=== PATIENT | male | born 1930 | race Caucasian/White ===

== ENCOUNTER 2017-11-28 10:57 | Inpatient (IN) ==
[2017-11-28] MEDS ORDERED: Morphine Inj 4 MG/ML Vial IV.PUSH ONE (12:26)
[2017-11-28 12:49] LABS: Baso % (Auto) 0.3 % (0.0-2.0); Eos % (Auto) 0.9 % (0.0-4.0); Hematocrit 42.7 % (39.0-51.0); Lymph # (Auto) 2.3 th/mm3 (1.0-4.8); Lymph % (Auto) 43.7 % (9.0-44.0); Mean Corpuscular HGB Conc 32.7 % (32.0-36.0); Mean Corpuscular Hemoglobin 31.9 pg (27.0-34.0); Mean Corpuscular Volume 97.4 fL (80.0-100.0); Mean Platelet Volume 9.5 fL (7.0-11.0); Mono # (Auto) 0.5 th/mm3 (0.0-0.9); Mono % (Auto) 10.1 % (0.0-8.0); Neut # (Auto) 2.4 th/mm3 (1.8-7.7); Platelet Count 173 th/mm3 (150-450); Red Blood Count 4.39 mil/mm3 (4.50-5.90); Red Cell Distribution Width 13.7 % (11.6-17.2); White Blood Count 5.2 th/mm3 (4.0-11.0)
[2017-11-28 12:59] LABS: Activated Partial Thrombo Time 27.1 sec (24.3-30.1); INR 1.9 Ratio
--- NOTE | 2017-11-28 13:03 | ED ---
HPI General Chief Complaint: Fall Stated Complaint: Fall Time Seen by Provider: 11/28/17 12:17 History of Present Illness HPI Narrative: Patient is a 87-year-old male with history of atrial fibrillation on Coumadin, accidentally fell earlier today, injured his left hip. Is unable to ambulate normally rotated and shortened left leg. Patient denies any other injury, no loss of consciousness, no head injury reported. He denies any chest pain. No shortness of breath. Related Data Home Medications Medication Instructions Recorded Confirmed cholecalciferol (vitamin D3) 1,000 unit PO DAILY 11/28/17 11/28/17 [Vitamin D3] cyanocobalamin (vitamin B-12) 500 mcg PO DAILY 11/28/17 11/28/17 [Vitamin B-12] diltiazem HCl 180 mg PO DAILY 11/28/17 11/28/17 finasteride 5 mg PO DAILY 11/28/17 11/28/17 metoprolol succinate 50 mg PO DAILY 11/28/17 11/28/17 pravastatin 40 mg PO DAILY 11/28/17 11/28/17 silodosin [Rapaflo] 8 mg PO DAILY 11/28/17 11/28/17 warfarin 5 mg PO DAILY 11/28/17 11/28/17 Previous Rx's Medication Instructions Recorded tramadol 50 mg PO Q6-8H PRN #7 tab 11/28/17 Allergies Allergy/AdvReac Type Severity Reaction Status Date / Time No Known Allergies Allergy Unverified 11/28/17 11:32 Review of Systems ROS: all other systems reviewed are negative Musculoskeletal Reports myalgias and Reports arthralgias [facility] Medical History Medical History Afib (Acute) BPH (benign prostatic hyperplasia) (Acute) High cholesterol (Acute) Surgical History Surgical History History of repair of hiatal hernia (Acute) Family History Family History Father Multiple myeloma Mother Heart problem Social History Social History Substance History: No History of Abuse Smoking Status: Former smoker How Often Do You Have a Drink Containing Alcohol: 4 or more times a week Recent Travel in [facility] within the Last 8 Weeks: No Recent Out of Country Travel within the Last 8 Weeks: No Immunization History Tetanus Immunization: <5 Years Hx Influenza Vaccine This Season: Yes Exam Narrative Exam Narrative: GENERAL: [87-year-old male in no apparent distress-] SKIN: Focused skin assessment warm/dry. HEAD: Atraumatic. Normocephalic. EYES: Pupils equal and round. No scleral icterus. No injection or drainage. ENT: No nasal bleeding or discharge. Mucous membranes pink and moist. NECK: Trachea midline. No JVD. CARDIOVASCULAR: Regular rate and rhythm. No murmur appreciated. RESPIRATORY: No accessory muscle use. Clear to auscultation. Breath sounds equal bilaterally. GASTROINTESTINAL: Abdomen soft, non-tender, nondistended. Hepatic and splenic margins not palpable. MUSCULOSKELETAL: Left leg externally rotated and shortened. Range of motion decreased due to pain, no neurovascular deficit. No cyanosis. No edema. NEUROLOGICAL: Awake and alert. No obvious cranial nerve deficits. Motor grossly within normal limits. Normal speech. PSYCHIATRIC: Appropriate mood and affect; insight and judgment normal. Course Initial Documented Vital Signs Temperature 97.9 F 11/28/17 11:04 Pulse Rate 79 11/28/17 11:04 Respiratory Rate 18 11/28/17 11:04 Blood Pressure 132/75 11/28/17 11:04 Pulse Oximetry 97 11/28/17 11:04 Last Documented Vital Signs Temperature 97.9 F 11/28/17 11:04 Pulse Rate 80 11/28/17 16:10 Respiratory Rate 20 11/28/17 16:10 Blood Pressure 130/74 11/28/17 16:10 Pulse Oximetry 96 11/28/17 16:10 Medical Decision Making MDM Narrative Medical decision making narrative: Left hip x-ray to rule out fracture Labs Pain medication Patient has femoral neck fracture on the left Labs noted Dr. Robert was called Discussed with hospitalist Dr. Dalal. Who accepted patient for admission to medicine. Medical Screen Exam Complete: Yes Emergency Medical Condition: Yes Lab Data Result diagrams: 11/28/17 12:35 11/28/17 12:35 Lab Results 11/28/17 11/28/17 11/28/17 Range/Units 12:35 12:35 12:35 WBC 5.2 (4.0-11.0) th/mm3 RBC 4.39 L (4.50-5.90) mil/mm3 Hgb 14.0 (13.0-17.0) gm/dL Hct 42.7 (39.0-51.0) % MCV 97.4 (80.0-100.0) fL MCH 31.9 (27.0-34.0) pg MCHC 32.7 (32.0-36.0) % RDW 13.7 (11.6-17.2) % Plt Count 173 (150-450) th/mm3 MPV 9.5 (7.0-11.0) fL Neut % (Auto) 45.0 (16.0-70.0) % Lymph % (Auto) 43.7 (9.0-44.0) % [place] % (Auto) 10.1 H (0.0-8.0) % Eos % (Auto) 0.9 (0.0-4.0) % Baso % (Auto) 0.3 (0.0-2.0) % Neut # (Auto) 2.4 (1.8-7.7) th/mm3 Lymph # (Auto) 2.3 (1.0-4.8) th/mm3 [place] # (Auto) 0.5 (0.0-0.9) th/mm3 Eos # (Auto) 0.0 (0.0-0.4) th/mm3 Baso # (Auto) 0.0 (0.0-0.2) th/mm3 WBC Differential . Differential Comment Auto diff final PT 19.0 H (9.8-11.6) sec INR 1.9 Ratio APTT 27.1 (24.3-30.1) sec Sodium 141 (136-145) meq/L Potassium 4.0 (3.5-5.1) meq/L Chloride 107 (98-107) meq/L Carbon Dioxide 23.9 (21.0-32.0) meq/L Anion Gap 10 (5-15) meq/L BUN 16 (7-18) mg/dL Creatinine 0.91 (0.60-1.30) mg/dL Estimated GFR 79 L (>89) mL/min Random Glucose 102 (74-106) mg/dL Calcium 8.2 L (8.5-10.1) mg/dL Blood Type Blood Type Recheck Antibody Screen 11/28/17 Range/Units 12:35 WBC (4.0-11.0) th/mm3 RBC (4.50-5.90) mil/mm3 Hgb (13.0-17.0) gm/dL Hct (39.0-51.0) % MCV (80.0-100.0) fL MCH (27.0-34.0) pg MCHC (32.0-36.0) % RDW (11.6-17.2) % Plt Count (150-450) th/mm3 MPV (7.0-11.0) fL Neut % (Auto) (16.0-70.0) % Lymph % (Auto) (9.0-44.0) % [place] % (Auto) (0.0-8.0) % Eos % (Auto) (0.0-4.0) % Baso % (Auto) (0.0-2.0) % Neut # (Auto) (1.8-7.7) th/mm3 Lymph # (Auto) (1.0-4.8) th/mm3 [place] # (Auto) (0.0-0.9) th/mm3 Eos # (Auto) (0.0-0.4) th/mm3 Baso # (Auto) (0.0-0.2) th/mm3 WBC Differential Differential Comment PT (9.8-11.6) sec INR Ratio APTT (24.3-30.1) sec Sodium (136-145) meq/L Potassium (3.5-5.1) meq/L Chloride (98-107) meq/L Carbon Dioxide (21.0-32.0) meq/L Anion Gap (5-15) meq/L BUN (7-18) mg/dL Creatinine (0.60-1.30) mg/dL Estimated GFR (>89) mL/min Random Glucose (74-106) mg/dL Calcium (8.5-10.1) mg/dL Blood Type A Positive Blood Type Recheck Required Antibody Screen Negative Imaging Data Radiologist's impression: Chest X-Ray 11/28/17 12:26 CONCLUSION: Clear lungs. Hip X-Ray 11/28/17 12:28 CONCLUSION: Comminuted left proximal femur fracture. Discharge Plan Discharge Disposition Patient Disposition: 30 Still Patient Discharge Details Discharge Comment: left hip fracture, admitted for surgical treatment Diagnosis: Fracture of femoral neck, left, closed Physicians Team ED Provider: Bill Mueller Primary Care Provider: UNKNOWN, Other Providers: Cornelius Holt Rxs /Orders / Referrals /Forms Prescriptions: New tramadol 50 mg tablet 50 mg PO Q6-8H PRN (Reason: pain) Qty: 7 RF: 0 No Action diltiazem HCl 180 mg Capsule,Extended Release 24 Hr 180 mg PO DAILY RF: 0 pravastatin 40 mg Tablet 40 mg PO DAILY RF: 0 metoprolol succinate 50 mg Tablet Extended Release 24 Hr 50 mg PO DAILY RF: 0 cyanocobalamin (vitamin B-12) [Vitamin B-12] 500 mcg Tablet 500 mcg PO DAILY RF: 0 warfarin 5 mg Tablet 5 mg PO DAILY RF: 0 finasteride 5 mg Tablet 5 mg PO DAILY RF: 0 cholecalciferol (vitamin D3) [Vitamin D3] 1,000 unit Capsule 1,000 unit PO DAILY RF: 0 silodosin [Rapaflo] 8 mg Capsule 8 mg PO DAILY RF: 0 Discharge Interventions Interventions: Vital Signs Last Done: 11/28/17 15:10 Status ED Status: With Doctor
[2017-11-28 13:14] LABS: Calcium 8.2 mg/dL (8.5-10.1); Carbon Dioxide 23.9 meq/L (21.0-32.0)
--- NOTE | 2017-11-28 13:22 | XR ---
EXAM DATE: 11/28/2017 1:17 PM EDT AGE/SEX: 87 years / Male INDICATIONS: Fall, left hip pain. CLINICAL DATA: This is the patient's initial encounter. Patient reports that signs and symptoms have been present for 1 day and indicates a pain score of 10/10. MEDICAL/SURGICAL HISTORY: None. None. COMPARISON: No prior exams available for comparison. FINDINGS: Cardiomegaly. Aortic calcification. Clear lungs. Osseous structures are intact. CONCLUSION: Clear lungs. Electronically signed by: Lars Vernon MD 11/28/2017 1:20 PM EDT
--- NOTE | 2017-11-28 13:33 | XR ---
EXAM DATE: 11/28/2017 1:27 PM EDT AGE/SEX: 87 years / Male INDICATIONS: Fall, left hip pain. CLINICAL DATA: This is the patient's initial encounter. Patient reports that signs and symptoms have been present for 1 day and indicates a pain score of 10/10. MEDICAL/SURGICAL HISTORY: None. None. COMPARISON: No prior exams available for comparison. FINDINGS: Bone density is diffusely diminished. Surgical clips are noted in the pelvis. There is a comminuted f racture of the left femoral neck identified. There is mild displacement. CONCLUSION: Comminuted left proximal femur fracture. Electronically signed by: Lars Vernon MD 11/28/2017 1:32 PM EDT
[2017-11-28] MEDS ORDERED: Morphine Sulfate Inj 2 MG/ML Vial IV.PUSH ONE (14:01)
[2017-11-28] MEDS ORDERED: Bisacodyl 10 MG Supp RECTAL PRN (14:56)
[2017-11-28] MEDS ORDERED: Acetaminophen 325 MG Tablet PO PRN (14:57)
--- NOTE | 2017-11-28 15:04 | P.HP ---
History of Present Illness Primary Care Physician: UNKNOWN Chief Complaint: s/p mechanical fall History of Present Illness: Patient is a very pleasant 87-year-old male with history of atrial fibrillation on Coumadin, hyperlipidemia, BPH, accidentally fell earlier today, injured his left hip. Is unable to ambulate normally, has rotated and shortened left leg. Patient denies any other injury, no loss of consciousness, no head injury reported. He denies any chest pain. No shortness of breath. 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 His INR is 1.9 today. Patient has left neck femoral fracture orthopedics was consulted. Is cleared medically for surgery. Review of Systems All other systems reviewed negative except as stated in HPI [facility] - History History Provided By: Patient - Medical History Medical History: Medical History (Last Updated 11/28/17 @ 16:18 by Lisa Hollins MD) Afib BPH (benign prostatic hyperplasia) High cholesterol - Surgical History Surgical History: Surgical History (Last Reviewed 11/28/17 @ 15:00 by Lisa Hollins MD) History of repair of hiatal hernia - Family History Family History: Family History (Last Updated 11/28/17 @ 16:19 by Lisa Hollins MD) Father Multiple myeloma Mother Heart problem - Tobacco History Smoking Status: Former smoker - Alcohol History How Often Do You Have a Drink Containing Alcohol: 4 or more times a week - Substance Use History Substance History: No History of Abuse - Travel History Recent Travel in the [place] Within the Last 8 Weeks: No Recent Travel Out of the Country Within the Last 8 Weeks: No - Immunization History Tetanus Immunization: <5 Years Hx Influenza Vaccine This Season: Yes Medications and Allergies Active Medications: Active Medications Acetaminophen (Tylenol) 650 mg PO Q4H PRN PRN Reason: Temp > 100.4 Al Hydroxide/Mg Hydroxide (Milk Of Magnesia Liq) 30 ml PO Q12H PRN PRN Reason: Mild Constipation Bisacodyl (Dulcolax Supp) 10 mg RECTAL DAILY PRN PRN Reason: SEVERE CONSITIPATION Sodium Chloride (Ns Inj) 1,000 mls @ 70 mls/hr IV.CONT .[id number] VIOLA Lactulose (Lactulose Liq) 30 ml PO DAILY PRN PRN Reason: SEVERE CONSITIPATION Ondansetron HCl (Zofran Inj) 4 mg IV.PUSH Q6H PRN PRN Reason: NAUSEA OR VOMITING Senna/Docusate Sodium (Teri-Colace) 1 tab PO BID VIOLA Sennosides (Senokot) 17.2 mg PO Q12H PRN PRN Reason: Moderate Constipation Sodium Chloride (Ns Flush) 2 ml IV.FLUSH PRN PRN PRN Reason: FLUSH AFTER USING IV ACCESS Last Admin: 11/28/17 14:16 Dose: 2 ml Allergies Allergy/AdvReac Type Severity Reaction Status Date / Time No Known Allergies Allergy Unverified 11/28/17 11:32 Home Medications Medication Instructions Recorded Confirmed Type cholecalciferol (vitamin D3) 1,000 unit PO DAILY 11/28/17 11/28/17 History [Vitamin D3] cyanocobalamin (vitamin B-12) 500 mcg PO DAILY 11/28/17 11/28/17 History [Vitamin B-12] diltiazem HCl 180 mg PO DAILY 11/28/17 11/28/17 History finasteride 5 mg PO DAILY 11/28/17 11/28/17 History metoprolol succinate 50 mg PO DAILY 11/28/17 11/28/17 History pravastatin 40 mg PO DAILY 11/28/17 11/28/17 History silodosin [Rapaflo] 8 mg PO DAILY 11/28/17 11/28/17 History warfarin 5 mg PO DAILY 11/28/17 11/28/17 History Exam Vital signs: Vital Signs 11/28/17 11:04 11/28/17 11:29 Temperature 97.9 F Pulse Rate 79 61 Respiratory Rate 18 14 Blood Pressure 132/75 145/71 H Pulse Oximetry 97 97 Intake & Output 11/27/17 11/28/17 11/28/17 18:59 06:59 18:59 Weight 74.843 kg Narrative: GENERAL: Pleasant elderly male, in nad SKIN: Warm and dry. HEAD: Atraumatic. Normocephalic. EYES: Pupils equal and round. No scleral icterus. No injection or drainage. ENT: No nasal bleeding or discharge. Mucous membranes pink and moist. NECK: Trachea midline. No JVD. CARDIOVASCULAR: Regular rate and rhythm. RESPIRATORY: No accessory muscle use. Clear to auscultation. Breath sounds equal bilaterally. GASTROINTESTINAL: Abdomen soft, non-tender, nondistended. Hepatic and splenic margins not palpable. MUSCULOSKELETAL: Left leg externally rotated and shortened. Neurovascular intact. Extremities without clubbing, cyanosis, or edema. No obvious deformities. NEUROLOGICAL: Awake and alert. No obvious cranial nerve deficits. Motor grossly within normal limits. Five out of 5 muscle strength in the arms and legs. Normal speech. PSYCHIATRIC: Appropriate mood and affect; insight and judgment normal. Results - Labs CBC & Chem 7: 11/28/17 12:35 11/28/17 12:35 Labs: Laboratory Results - last 24 hr 11/28/17 11/28/17 11/28/17 12:35 12:35 12:35 WBC 5.2 RBC 4.39 L Hgb 14.0 Hct 42.7 MCV 97.4 MCH 31.9 MCHC 32.7 RDW 13.7 Plt Count 173 MPV 9.5 Neut % (Auto) 45.0 Lymph % (Auto) 43.7 [place] % (Auto) 10.1 H Eos % (Auto) 0.9 Baso % (Auto) 0.3 Neut # (Auto) 2.4 Lymph # (Auto) 2.3 [place] # (Auto) 0.5 Eos # (Auto) 0.0 Baso # (Auto) 0.0 WBC Differential . Differential Comment Auto diff final PT 19.0 H INR 1.9 APTT 27.1 Sodium 141 Potassium 4.0 Chloride 107 Carbon Dioxide 23.9 Anion Gap 10 BUN 16 Creatinine 0.91 Estimated GFR 79 L Random Glucose 102 Calcium 8.2 L Blood Type Blood Type Recheck Antibody Screen 11/28/17 12:35 WBC RBC Hgb Hct MCV MCH MCHC RDW Plt Count MPV Neut % (Auto) Lymph % (Auto) [place] % (Auto) Eos % (Auto) Baso % (Auto) Neut # (Auto) Lymph # (Auto) [place] # (Auto) Eos # (Auto) Baso # (Auto) WBC Differential Differential Comment PT INR APTT Sodium Potassium Chloride Carbon Dioxide Anion Gap BUN Creatinine Estimated GFR Random Glucose Calcium Blood Type A Positive Blood Type Recheck Required Antibody Screen Negative - Imaging Impressions Chest X-Ray 11/28/17 12:26 CONCLUSION: Clear lungs. Hip X-Ray 11/28/17 12:28 CONCLUSION: Comminuted left proximal femur fracture. Caprini VTE Risk Assessment Caprini VTE Risk Assessment: Moderate/High Risk (score >= 2) Caprini Risk Assessment Model: Point Value = 1 Point Value = 2 Point Value = 3 Point Value = 5 Age 41-60 Minor surgery BMI > 25 kg/m2 Swollen legs Varicose veins or History of unexplained or recurrent spontaneous Oral contraceptives or hormone replacement Sepsis (< 1 month) Serious lung disease, including pneumonia (< 1 month) Abnormal pulmonary function Acute myocardial infarction Congestive heart failure (< 1 month) History of inflammatory bowel disease Medical patient at bed rest Age 61-74 Arthroscopic surgery Major open surgery (> 45 min) Laparoscopic surgery (> 45 min) Malignancy Confined to bed (> 72 hours) Immobilizing plaster cast Central venous access Age >= 75 History of VTE Family history of VTE Factor V Leiden Prothrombin [id number] Lupus anticoagulant Anticardiolipin antibodies Elevated serum homocysteine Heparin-induced thrombocytopenia Other congenital or acquired thrombophilia Stroke (< 1 month) Elective arthroplasty Hip, pelvis, or leg fracture Acute spinal cord injury (< 1 month) Prophylaxis Regimen: Total Risk Factor Score Risk Level Prophylaxis Regimen 0-1 Low Early ambulation 2 Moderate Order ONE of the following: *Sequential Compression Device (SCD) *Heparin 5000 units SQ BID 3-4 Higher Order ONE of the following medications: *Heparin 5000 units SQ TID *Enoxaparin/Lovenox 40 mg SQ daily (WT < 150 kg, CrCl > 30 mL/min) *Enoxaparin/Lovenox 30 mg SQ daily (WT < 150 kg, CrCl > 10-29 mL/min) *Enoxaparin/Lovenox 30 mg SQ BID (WT < 150 kg, CrCl > 30 mL/min) AND/OR *Sequential Compression Device (SCD) 5 or more Highest Order ONE of the following medications: *Heparin 5000 units SQ TID (Preferred with Epidurals) *Enoxaparin/Lovenox 40 mg SQ daily (WT < 150 kg, CrCl > 30 mL/min) *Enoxaparin/Lovenox 30 mg SQ daily (WT < 150 kg, CrCl > 10-29 mL/min) *Enoxaparin/Lovenox 30 mg SQ BID (WT < 150 kg, CrCl > 30 mL/min) AND *Sequential Compression Device (SCD) Assessment and Plan - Plan 87 yo male: s.p mechanical fall with right neck femoral fracture ortho Dr Nguyen consulted Pain meds per pain scale Cleared medically for surgery Labs fairly normal EKG reviewed, CXR reviewed Patient has a h/o Afib and HLD. Restart home meds as appropriate. Monitor on telemetry. Monitor VS In IVf as patient will be NPO prior to surgery. NPO after midnight INR is 1.9 on admission patient reports taking Coumadin today in the morning. Will repeat INR in the morning. Might need reversal with FFP. DVT ppx SCDs/TEDs, chemical ppx per surgeon Note patient is on coumadin for Afib. INR on admission is 1.9. Hold coumadin. Discussed Condition With: The patient, family at bedside, ED physician, nurse
[2017-11-28] MEDS: Morphine Inj 4 MG/ML Vial IV.PUSH PRN (16:17)
[2017-11-28] MEDS: Sod Chloride 0.9% Inj 1,000 ML IV.CONT SCH (16:19)
[2017-11-28] MEDS: Senna/Docusate Sodium 8.6/50 MG Tablet PO SCH (21:48)
--- NOTE | 2017-11-28 22:18 | MB ---
cc: ,Ashish Holt DATE: 11/28/2017 REQUESTING PHYSICIAN: Bill Mueller MD CONSULTING PHYSICIAN: Ashish Holt MD HISTORY OF PRESENT ILLNESS: Mr. Wilson is an 87-year-old gentleman with a history of atrial fibrillation on Coumadin, hyperlipidemia, BPH, who presents status post mechanical fall. He notes he was at [facility] out of town when he sustained a fall resulting in acute onset left hip pain. On presentation at bedside, he denies any other orthopedic complaints aside from his left hip pain. Denies paresthesias to the limbs. He rates his pain at a 6/10 in severity. He denies other complaints. PAST MEDICAL HISTORY: Significant for atrial fibrillation on Coumadin, hyperlipidemia, BPH. PAST SURGICAL HISTORY: Includes history of hiatal hernia repair. FAMILY HISTORY: Noncontributory. SOCIAL HISTORY: Former smoker. Endorses social alcohol use. MEDICATIONS: Home medications include: 1. Diltiazem. 2. Finasteride. 3. Metoprolol. 4. Pravastatin. 5. Warfarin. ALLERGIES: NO KNOWN DRUG ALLERGIES. REVIEW OF SYSTEMS: GENERAL: No fever or chills. MUSCULOSKELETAL: Positive for joint pain. NEUROLOGIC: No numbness or tingling. ABDOMINAL: No GI upset. LUNGS: No wheezing. CARDIAC: No chest pain. PSYCHIATRIC: No depression, no depression or anxiety. PHYSICAL EXAMINATION: GENERAL: He is alert and oriented x 3 with a normal mood and affect. VITAL SIGNS: Focused evaluation of bilateral upper and lower extremities demonstrates no tenderness to palpation about the joints, with the exception of the left hip. There is painless log roll of the right hip. Painless passive range of motion of the remainder of the joints. There is gross motor control of the bilateral upper and lower extremities. Left lower extremity with intact EHL/FHL/tibialis anterior/gastroc. NEUROLOGIC: Screening evaluation of left lower extremity demonstrates intact to the sural, saphenous, SP, DP, tibial nerve distribution. CARDIAC: She has regular cardiac pulse of 79. In a fib. LUNGS: Nonlabored breathing. ABDOMEN: Flat, nontender. SKIN: Mild left lower extremity edema. ASSESSMENT: An 87-year-old male with a history of atrial fibrillation, on Coumadin. Presents with a left femoral neck fracture. PLAN: 1. Strict nonweightbearing to the left lower extremity. 2. Appreciate medicine documentation. INR is 1.9 on admission. Plan for repeat INR in the morning. May consider reversal with fresh frozen plasma per medicine team. 3. Appreciate medical documentation of clearance, pending INR. We had a thorough discussion with Mr. Wilson at bedside regarding our recommendations for treatment of the femoral neck fracture with hemiarthroplasty versus total hip arthroplasty. We discussed that Dr. Santoyo will be present in the morning and have further discussion with him regarding informed consent and to make the decision of the exact details regarding surgery. All questions and concerns were addressed at bedside. Please make patient n.p.o. at midnight. We will plan for OR in the morning pending repeat INR. Ashish Holt MD, CM/bertha , 09:11 PM , 09:21 PM
[2017-11-29] MEDS ORDERED: Sodium Chlor 0.9% Inj 500 ML IV.CONT ONE (05:00)
[2017-11-29] MEDS ORDERED: Chlorhexidine Gluconate 2% 1 Pack (2 Cloths) TOPICAL ONE (05:00)
[2017-11-29 05:01] LABS: Baso % (Auto) 0.5 % (0.0-2.0); Eos % (Auto) 0.2 % (0.0-4.0); Hematocrit 40.5 % (39.0-51.0); Hemoglobin 13.7 gm/dL (13.0-17.0); Lymph # (Auto) 1.8 th/mm3 (1.0-4.8); Mean Corpuscular HGB Conc 33.9 % (32.0-36.0); Mean Corpuscular Hemoglobin 32.8 pg (27.0-34.0); Mean Corpuscular Volume 96.8 fL (80.0-100.0); Mono # (Auto) 0.8 th/mm3 (0.0-0.9); Mono % (Auto) 12.2 % (0.0-8.0); Neut # (Auto) 4.1 th/mm3 (1.8-7.7); Neut % (Auto) 60.1 % (16.0-70.0); Platelet Count 139 th/mm3 (150-450); Red Blood Count 4.19 mil/mm3 (4.50-5.90); Red Cell Distribution Width 13.8 % (11.6-17.2); White Blood Count 6.8 th/mm3 (4.0-11.0)
[2017-11-29 05:20] LABS: Calcium 8.2 mg/dL (8.5-10.1); Carbon Dioxide 27.5 meq/L (21.0-32.0); Potassium 4.1 meq/L (3.5-5.1)
[2017-11-29 06:32] LABS: INR 2.1 Ratio; Prothrombin Time 20.8 sec (9.8-11.6)
--- NOTE | 2017-11-29 06:46 | P.PNOP ---
Subjective Interval history: s/p left femoral neck fx reports pain in left hip. no other complaints. takes coumadin. Physical Exam Vital signs: Vital Signs 11/28/17 11:04 11/28/17 11:29 11/28/17 13:30 Temperature 97.9 F Pulse Rate 79 61 66 Respiratory Rate 18 14 17 Blood Pressure 132/75 145/71 H 141/81 H Pulse Oximetry 97 97 96 11/28/17 15:10 11/28/17 16:10 11/28/17 17:30 Temperature 97.9 F Pulse Rate 76 80 82 Respiratory Rate 16 20 16 Blood Pressure 130/74 139/80 Pulse Oximetry 96 96 96 11/28/17 20:00 11/28/17 22:05 11/29/17 00:00 Temperature 98.8 F 99.2 F Pulse Rate 76 85 Respiratory Rate 17 17 Blood Pressure 121/72 147/72 H Pulse Oximetry 94 L 95 94 L 11/29/17 03:48 11/29/17 04:00 Temperature 99.2 F Pulse Rate 88 90 Respiratory Rate 17 Blood Pressure 147/78 H Pulse Oximetry 94 L Intake & Output 11/28/17 11/28/17 11/29/17 06:59 18:59 06:59 Output Total 1050 / 1050 Balance -1050 / -1050 Weight 74.843 kg 74 kg Output: Urine 1050 / 1050 Other: # Voids 1 Date of Last Bowel Movement 11/27/17 Narrative: LLE: pain in hip with movement. nvi distally. Results - Labs CBC & Chem 7: 11/29/17 04:12 11/29/17 04:12 Laboratory Results - last 24 hr 11/28/17 11/28/17 11/28/17 12:35 12:35 12:35 WBC 5.2 RBC 4.39 L Hgb 14.0 Hct 42.7 MCV 97.4 MCH 31.9 MCHC 32.7 RDW 13.7 Plt Count 173 MPV 9.5 Neut % (Auto) 45.0 Lymph % (Auto) 43.7 [place] % (Auto) 10.1 H Eos % (Auto) 0.9 Baso % (Auto) 0.3 Neut # (Auto) 2.4 Lymph # (Auto) 2.3 [place] # (Auto) 0.5 Eos # (Auto) 0.0 Baso # (Auto) 0.0 WBC Differential . Differential Comment Auto diff final PT 19.0 H INR 1.9 APTT 27.1 Sodium 141 Potassium 4.0 Chloride 107 Carbon Dioxide 23.9 Anion Gap 10 BUN 16 Creatinine 0.91 Estimated GFR 79 L Random Glucose 102 Calcium 8.2 L Blood Type Blood Type Recheck Antibody Screen 11/28/17 11/29/17 11/29/17 12:35 04:12 04:12 WBC 6.8 RBC 4.19 L Hgb 13.7 Hct 40.5 MCV 96.8 MCH 32.8 MCHC 33.9 RDW 13.8 Plt Count 139 L MPV 9.0 Neut % (Auto) 60.1 Lymph % (Auto) 27.0 [place] % (Auto) 12.2 H Eos % (Auto) 0.2 Baso % (Auto) 0.5 Neut # (Auto) 4.1 Lymph # (Auto) 1.8 [place] # (Auto) 0.8 Eos # (Auto) 0.0 Baso # (Auto) 0.0 WBC Differential . Differential Comment Auto diff final PT INR APTT Sodium 141 Potassium 4.1 Chloride 104 Carbon Dioxide 27.5 Anion Gap 10 BUN 12 Creatinine 0.82 Estimated GFR 89 Random Glucose 105 Calcium 8.2 L Blood Type A Positive Blood Type Recheck Required Antibody Screen Negative 11/29/17 11/29/17 04:12 04:12 WBC RBC Hgb Hct MCV MCH MCHC RDW Plt Count MPV Neut % (Auto) Lymph % (Auto) [place] % (Auto) Eos % (Auto) Baso % (Auto) Neut # (Auto) Lymph # (Auto) [place] # (Auto) Eos # (Auto) Baso # (Auto) WBC Differential Differential Comment PT 20.8 H INR 2.1 APTT 29.8 Sodium Potassium Chloride Carbon Dioxide Anion Gap BUN Creatinine Estimated GFR Random Glucose Calcium Blood Type Blood Type Recheck Antibody Screen - Imaging Impressions Chest X-Ray 11/28/17 12:26 CONCLUSION: Clear lungs. Hip X-Ray 11/28/17 12:28 CONCLUSION: Comminuted left proximal femur fracture. Assessment and Plan - Assessment and Plan 1) Left Femoral Neck Fx -INR is 2.1 this AM and is too high for surgery -10 vit K -1 unit of FFP -resume diet -npo after MN -sign consents -plan for surgery tomorrow with Natanael pending corrected INR
[2017-11-29] MEDS: dilTIAZem CD 180 MG Capsule PO SCH (08:27)
[2017-11-29] MEDS: Senna/Docusate Sodium 8.6/50 MG Tablet PO SCH ×2 (08:27→20:10)
[2017-11-29] MEDS: Finasteride 5 MG Tablet PO SCH (08:27)
[2017-11-29 14:14] LABS: INR 1.5 Ratio; Prothrombin Time 14.9 sec (9.8-11.6)
--- NOTE | 2017-11-29 14:46 | P.PN ---
Subjective Interval history: Very pleasant male in bed appears to not acute distress at this time. Says he has pain in his left hip especially with movement. INR is 2.1 today so surgery is postponed until tomorrow. Otherwise he is in not acute distress and has no complaints. No palpitations no shortness of breath no lower extremity edema. No nausea or vomiting eating well Physical Exam Vital signs: Vital Signs 11/28/17 15:10 11/28/17 16:10 11/28/17 17:30 Temperature 97.9 F Pulse Rate 76 80 82 Respiratory Rate 16 20 16 Blood Pressure 130/74 139/80 Pulse Oximetry 96 96 96 11/28/17 20:00 11/28/17 22:05 11/29/17 00:00 Temperature 98.8 F 99.2 F Pulse Rate 76 85 Respiratory Rate 17 17 Blood Pressure 121/72 147/72 H Pulse Oximetry 94 L 95 94 L 11/29/17 03:48 11/29/17 04:00 11/29/17 08:00 Temperature 99.2 F 98.9 F Pulse Rate 88 90 94 H Respiratory Rate 17 18 Blood Pressure 147/78 H 140/81 Pulse Oximetry 94 L 93 L 11/29/17 10:21 11/29/17 10:35 11/29/17 12:00 Temperature 99.1 F 98.3 F 99.2 F Pulse Rate 95 H 98 H 98 H Respiratory Rate 16 16 Blood Pressure 138/79 130/83 113/53 L Pulse Oximetry 95 95 92 L 11/29/17 14:00 Temperature 98.3 F Pulse Rate 83 Respiratory Rate 16 Blood Pressure 109/55 L Pulse Oximetry 95 Intake & Output 11/28/17 11/29/17 11/29/17 18:59 06:59 18:59 Intake Total 359 / 359 Output Total 1050 / 1050 Balance -1050 / -1050 359 / 359 Weight 74.843 kg 74 kg Intake: Intake (Blood Product) Amt 359 / 359 Plasma Thawed 5 Day Cp2d Unit 359 / 359 [id number] Output: Urine 1050 / 1050 Other: # Voids 1 Date of Last Bowel Movement 11/27/17 11/27/17 Narrative: GENERAL: Pleasant elderly male, in nad CARDIOVASCULAR: Regular rate and rhythm. RESPIRATORY: No accessory muscle use. Clear to auscultation. Breath sounds equal bilaterally. GASTROINTESTINAL: Abdomen soft, non-tender, nondistended. Hepatic and splenic margins not palpable. MUSCULOSKELETAL: Left leg externally rotated and shortened. Neurovascular intact. Extremities without clubbing, cyanosis, or edema. No obvious deformities. NEUROLOGICAL: Awake and alert. No obvious cranial nerve deficits. Motor grossly within normal limits. Five out of 5 muscle strength in the arms and legs. Normal speech. Results - Labs CBC & Chem 7: 11/29/17 04:12 11/29/17 04:12 Laboratory Results - last 24 hr 11/29/17 11/29/17 11/29/17 04:12 04:12 04:12 WBC 6.8 RBC 4.19 L Hgb 13.7 Hct 40.5 MCV 96.8 MCH 32.8 MCHC 33.9 RDW 13.8 Plt Count 139 L MPV 9.0 Neut % (Auto) 60.1 Lymph % (Auto) 27.0 [place] % (Auto) 12.2 H Eos % (Auto) 0.2 Baso % (Auto) 0.5 Neut # (Auto) 4.1 Lymph # (Auto) 1.8 [place] # (Auto) 0.8 Eos # (Auto) 0.0 Baso # (Auto) 0.0 WBC Differential . Differential Comment Auto diff final PT INR APTT 29.8 Sodium 141 Potassium 4.1 Chloride 104 Carbon Dioxide 27.5 Anion Gap 10 BUN 12 Creatinine 0.82 Estimated GFR 89 Random Glucose 105 Calcium 8.2 L Blood Bank Comment 11/29/17 11/29/17 11/29/17 04:12 07:30 13:55 WBC RBC Hgb Hct MCV MCH MCHC RDW Plt Count MPV Neut % (Auto) Lymph % (Auto) [place] % (Auto) Eos % (Auto) Baso % (Auto) Neut # (Auto) Lymph # (Auto) [place] # (Auto) Eos # (Auto) Baso # (Auto) WBC Differential Differential Comment PT 20.8 H 14.9 H INR 2.1 1.5 APTT Sodium Potassium Chloride Carbon Dioxide Anion Gap BUN Creatinine Estimated GFR Random Glucose Calcium Blood Bank Comment Assessment and Plan - Plan 87 yo male: S/p mechanical fall with left neck femoral fracture ortho Dr Nguyen consulted Pain meds per pain scale Cleared medically for surgery Labs fairly normal EKG reviewed, CXR reviewed Patient has a h/o Afib and HLD. Restart home meds as appropriate. Monitor on telemetry. Monitor VS In IVf as patient will be NPO prior to surgery. NPO after midnight INR is 1.9 on admission patient reports taking Coumadin today in the morning. Will repeat INR in the morning. Might need reversal with FFP/ vit K . INR 11/29 at 2.1. Plan for reversal with fresh frozen plasma and vitamin K. Plan for surgery 11/30/[address] Santoyo DVT ppx SCDs/TEDs, chemical ppx per surgeon Note patient is on coumadin for Afib. INR on admission is 1.9. Hold coumadin. INR 11/29 at 2.1. Discussed with the patient, son at bedside, nurse.
--- NOTE | 2017-11-29 18:43 | ECG ---
Date Performed: 11/28/2017 Time Performed: 13:19:02 PTAGE: 87 years EKG: ATRIAL FIBRILLATION RIGHT BUNDLE BRANCH BLOCK ABNORMAL ECG NO PREVIOUS TRACING DOCTOR: Isaiah Live Interpretating Date/Time 11/29/2017 18:37:26
[2017-11-29] MEDS: Morphine Inj 4 MG/ML Vial IV.PUSH PRN (22:13)
[2017-11-29] MEDS: Sod Chloride 0.9% Inj 1,000 ML IV.CONT SCH ×2 (23:42→23:54)
[2017-11-30] MEDS ORDERED: Chlorhexidine Gluconate 2% 1 Pack (2 Cloths) TOPICAL ONE (01:48)
[2017-11-30] MEDS ORDERED: Sodium Chlor 0.9% Inj 500 ML IV.SIG SCH (02:00)
[2017-11-30] MEDS: Morphine Inj 4 MG/ML Vial IV.PUSH PRN (05:24)
[2017-11-30 05:33] LABS: Activated Partial Thrombo Time 26.4 sec (24.3-30.1); INR 1.2 Ratio
--- NOTE | 2017-11-30 06:38 | P.PNOP ---
Subjective Interval history: Resting comfortably. INR is down to 1.2 which is safe for surgery. He does complain of mild tenderness of the right hip with movement Physical Exam Vital signs: Vital Signs 11/29/17 08:00 11/29/17 10:21 11/29/17 10:35 Temperature 98.9 F 99.1 F 98.3 F Pulse Rate 94 H 95 H 98 H Respiratory Rate 18 16 16 Blood Pressure 140/81 138/79 130/83 Pulse Oximetry 93 L 95 95 11/29/17 12:00 11/29/17 14:00 11/29/17 16:00 Temperature 99.2 F 98.3 F 98.5 F Pulse Rate 98 H 83 62 Respiratory Rate 16 18 Blood Pressure 113/53 L 109/55 L 92/54 L Pulse Oximetry 92 L 95 94 L 11/29/17 17:14 11/29/17 20:00 11/29/17 21:33 Temperature 98.7 F 98.6 F Pulse Rate 72 69 Respiratory Rate 18 18 Blood Pressure 107/59 L 110/65 Pulse Oximetry 95 92 L 94 L 11/29/17 21:50 11/29/17 23:38 11/30/17 00:00 Temperature 98.6 F 98.6 F Pulse Rate 87 65 93 H Respiratory Rate 18 18 Blood Pressure 127/60 120/65 Pulse Oximetry 93 L 11/30/17 03:45 11/30/17 04:00 Temperature 99.4 F Pulse Rate 98 H 113 H Respiratory Rate 17 Blood Pressure 138/64 Pulse Oximetry 92 L Intake & Output 11/29/17 11/29/17 11/30/17 06:59 18:59 06:59 Intake Total 1000 / 1000 359 / 359 0 / 0 Output Total 1050 / 1050 Balance -50 / -50 359 / 359 0 / 0 Weight 74 kg Intake: IV 1000 / 1000 NS Inj 1,000 ML @ 70 mls/hr IV. 1000 / 1000 CONT .[id number] [facility] Rx#:[id number] Intake (Blood Product) Amt 359 / 359 0 / 0 Plasma Thawed 5 Day Acda Unit 0 / 0 [id number] Plasma Thawed 5 Day Cp2d Unit 359 / 359 [id number] Output: Urine 1050 / 1050 Other: Date of Last Bowel Movement 11/27/17 11/27/17 11/27/17 Narrative: Left lower extremity: Pain with movement of hip. Patient is marked for surgery. Distally intact sensation with active dorsiflexion plantar flexion of foot Right lower extremity: Mild tenderness to palpation over trochanter. Mild tenderness with movement of hip. No pain with knee or ankle range of motion. Distally intact sensation with good capillary refills. Results - Labs CBC & Chem 7: 11/29/17 04:12 11/29/17 04:12 Laboratory Results - last 24 hr 11/29/17 11/29/17 11/29/17 07:30 13:55 18:16 PT 14.9 H INR 1.5 APTT Blood Bank Comment 11/30/17 05:01 PT 12.0 H INR 1.2 APTT 26.4 Blood Bank Comment Assessment and Plan - Assessment and Plan 1) Left Femoral Neck Fx -INR is 1.2 this AM and we will proceed with surgery -npo -sign consents
[2017-11-30] MEDS ORDERED: Acetaminophen 325 MG Tablet PO ONE (07:45)
[2017-11-30] MEDS: Senna/Docusate Sodium 8.6/50 MG Tablet PO SCH ×2 (07:59→21:05)
[2017-11-30] MEDS: dilTIAZem CD 180 MG Capsule PO SCH (07:59)
[2017-11-30] MEDS: Finasteride 5 MG Tablet PO SCH (08:00)
[2017-11-30 08:18] LABS: Bilirubin,Urine Negative (Negative); Clarity,Urine Clear (Clear); Color,Urine Yellow (Yellw/Straw); Glucose,Urine (UA) Negative (Negative); Leukocyte Esterase,Urine Negative (Negative); Mucus,Urine Few /lpf (Occasional); Nitrite,Urine Negative (Negative); Specific Gravity,Urine 1.011 (1.002-1.035); Squamous Epithelial Cell,Urine <1 /hpf (0-5)
--- NOTE | 2017-11-30 08:43 | XR ---
EXAM DATE: 11/30/2017 8:32 AM EDT AGE/SEX: 87 years / Male INDICATIONS: Cough. CLINICAL DATA: This is the patient's subsequent encounter. Patient reports that signs and symptoms h ave been present for 3 days and indicates a pain score of 0/10. MEDICAL/SURGICAL HISTORY: None. None. [place] [facility] [place]. . FINDINGS: There are some mild platelike atelectasis in the right lower lung. Otherwise, the lungs are clear and well aerated. There is stable chronic interstitial changes. No pleural effusions. The heart size is upper limits of normal but stable. There is no evidence of pneumothorax. The bony structures are anderson sly intact. CONCLUSION: Mild atelectasis in the right lower lung. Electronically signed by: Chase Kruger MD 11/30/2017 8:42 AM EDT
[2017-11-30] MEDS ORDERED: Tobramycin Sulfate 1,200 MG Vial (for ortho/sterile core) OTHER ONE (08:44)
[2017-11-30] MEDS ORDERED: Tranexamic Acid Inj 1,200 MG in Sodium Chlor 0.9% Inj 100 ML IV.SIG ONE (08:50)
[2017-11-30 08:58] LABS: Baso % (Auto) 0.3 % (0.0-2.0); Eos % (Auto) 0.3 % (0.0-4.0); Hemoglobin 12.4 gm/dL (13.0-17.0); Lymph # (Auto) 1.5 th/mm3 (1.0-4.8); Mean Corpuscular HGB Conc 34.4 % (32.0-36.0); Mean Corpuscular Hemoglobin 33.1 pg (27.0-34.0); Mean Corpuscular Volume 96.1 fL (80.0-100.0); Mono # (Auto) 1.2 th/mm3 (0.0-0.9); Neut # (Auto) 4.8 th/mm3 (1.8-7.7); Neut % (Auto) 63.4 % (16.0-70.0); Platelet Count 107 th/mm3 (150-450); Red Blood Count 3.75 mil/mm3 (4.50-5.90); Red Cell Distribution Width 13.5 % (11.6-17.2); White Blood Count 7.6 th/mm3 (4.0-11.0)
[2017-11-30] MEDS ORDERED: Neostigmine Inj 5 MG/5 ML Syringe IV.PUSH ONE (09:00)
[2017-11-30] MEDS ORDERED: Glycopyrrolate Inj 1 MG/5 ML Syringe IV.PUSH ONE (09:00)
[2017-11-30] MEDS ORDERED: Lidocaine PF 1% Inj 5 ML Syringe OTHER ONE (09:00)
[2017-11-30] MEDS ORDERED: Esmolol Bolus Inj 100 MG/10 ML Vial IV.PUSH ONE (09:00)
[2017-11-30 09:13] LABS: Anion Gap 8 meq/L (5-15); Blood Urea Nitrogen 12 mg/dL (7-18); Calcium 7.7 mg/dL (8.5-10.1); Carbon Dioxide 25.1 meq/L (21.0-32.0); Chloride 102 meq/L (98-107); Glomerular Filtration Rate Greater Than 89 mL/min (>89); Glucose,Random 103 mg/dL (74-106); Potassium 3.6 meq/L (3.5-5.1); Sodium 135 meq/L (136-145)
--- NOTE | 2017-11-30 10:19 | P.OP ---
- Preoperative Diagnosis (1) Fracture of femoral neck, left, closed Date of procedure: 11/30/17 Procedure: Left hip hemiarthroplasty Anesthesia: GETA Surgeon: Wilner Coon MD Accounts Receivable Manager: ANITRA Crowley PA-C The surgical procedure was assisted by my physician press operator assistant. My P.A. presence was necessary throughout this case for the manipulation and positioning of the surgical extremity. My P.A. was assisting me throughout the duration of this procedure. The skill set of a physician press operator assistant was medically necessary to complete this procedure. During the surgical case the procurement technician was working at the back table and the physician press operator assistant was directly assisting me. Pathology: none sent Operation and Findings: PLAN OF ACTIVITY Weight bear as tolerated. IMPLANTS USED DePuy Davie size 8 stem with size [54] bipolar head and [standard] neck. DETAILS OF PROCEDURE This patient was brought into the operating room and placed on the OR table. The patient was given anesthesia. The patient received IV antibiotics. The patient was then placed in lateral decubitus position. The hip and leg were prepped with alcohol, followed by Hibiclens and draped in a usual sterile fashion. Clean air was used for this procedure. Time out procedure was performed. The procedure began with a 5 inch incision over the posterolateral hip. The subcutaneous tissue was dissected with the Bovie. The iliotibial band were split in line with fibers. The Charnley retractor was placed. The piriformis and external rotators were released from the femur and tagged with a #1 Vicryl suture. The capsule is now incised and tagged with #1 Vicryl. The femoral neck fracture was now visualized. A corkscrew was now used to remove the femoral head. The femoral head was sized and measured. Soft tissue was now protected. The hip skid was placed underneath the femoral neck. An oscillating saw was used to make a femoral neck cut. At this point attention was turned to preparation of the proximal femur. A box osteotome was used to remove the lateral cortex of the femoral neck. The T- handle reamer was used to open the femoral canal. The canal was sequentially reamed up to size 8. Next, the canal was broached up to size 8. A lateralizing reamer was used to help lateralize the prosthesis. At this point a trial head and neck were placed. The hip was reduced. The patient was found to have excellent stability with good range of motion. Trial components were removed. Soft tissue and bone were thoroughly irrigated. A size 8 Davie stem was now opened. The stem was now impacted into the proximal femur. Care was taken to keep appropriate anteversion. The head and neck were now impacted onto the stem. The hip was again reduced. The hip was found to have good range of motion and good stability. Leg lengths were clinically equal. The wound was thoroughly irrigated. The capsule, piriformis and iliotibial band were closed with #1 Vicryl. Subcutaneous tissue was closed with 3-0 Vicryl. The skin was closed with christi. A sterile dressing was applied with Primapore. The patient was placed into a knee immobilizer. The patient was awakened and transferred to the recovery room in stable condition. Needle and sponge counts were correct.
[2017-11-30] MEDS ORDERED: Morphine Inj 4 MG/ML Vial IV.PUSH PRN (10:20)
[2017-11-30] MEDS ORDERED: Post-op Orders (for Pharmacy) OTHER STA (10:20)
[2017-11-30] MEDS ORDERED: fentaNYL Citrate Inj 100 MCG/2 ML Ampul ONE (10:58)
--- NOTE | 2017-11-30 11:32 | XR ---
EXAM DATE: 11/30/2017 12:00 AM EDT AGE/SEX: 87 years / Male INDICATIONS: Post op left hip surgery. CLINICAL DATA: This is the patient's initial encounter. Patient reports that signs and symptoms have been present for 1 day and indicates a pain score of Nonresponsive. MEDICAL/SURGICAL HISTORY: Non-responsive. Non-responsive. COMPARISON: [facility] – [place], HIP LEFT W AP PELVIS 2V, 11/28/2017. . FINDINGS: Postoperative left total hip replacement. There is air in the soft tissues. Normal alignment. No comp lications identified. CONCLUSION: Postoperative left total hip replacement. Electronically signed by: Toni Louie MD 11/30/2017 11:30 AM EDT
[2017-11-30] MEDS: Calcium/Vitamin D 250/125 MG Tablet PO SCH ×2 (13:03→17:19)
--- NOTE | 2017-11-30 15:14 | P.PN ---
Subjective Interval history: The patient was seen after the surgery he appears to not acute distress. He is in the chair. Says he does not have pain at this time. He was noted febrile in the morning however patient denies having any fevers or chills and he felt good in the morning. Was noted also tachycardic in the morning however tachycardia resolved. He is not coughing. No nausea vomiting no diarrhea constipation. Encourage incentive spirometry Physical Exam Vital signs: Vital Signs 11/29/17 16:00 11/29/17 17:14 11/29/17 20:00 Temperature 98.5 F 98.7 F Pulse Rate 62 72 Respiratory Rate 18 18 Blood Pressure 92/54 L 107/59 L Pulse Oximetry 94 L 95 92 L 11/29/17 21:33 11/29/17 21:50 11/29/17 23:38 Temperature 98.6 F 98.6 F 98.6 F Pulse Rate 69 87 65 Respiratory Rate 18 18 18 Blood Pressure 110/65 127/60 120/65 Pulse Oximetry 94 L 93 L 11/30/17 00:00 11/30/17 03:45 11/30/17 04:00 Temperature 99.4 F Pulse Rate 93 H 98 H 113 H Respiratory Rate 17 Blood Pressure 138/64 Pulse Oximetry 92 L 11/30/17 08:00 11/30/17 08:51 11/30/17 10:01 Temperature 100 F H 98.4 F Pulse Rate 102 H 104 H Respiratory Rate 20 16 Blood Pressure 141/71 H 115/65 Pulse Oximetry 93 L 95 97 11/30/17 10:50 11/30/17 11:00 11/30/17 11:15 Temperature 97.3 F L Pulse Rate 91 H 90 87 Respiratory Rate 20 19 21 Blood Pressure 122/62 112/64 137/68 Pulse Oximetry 96 97 97 11/30/17 11:27 Temperature 97.8 F Pulse Rate 88 Respiratory Rate 18 Blood Pressure 135/75 Pulse Oximetry 95 Intake & Output 11/29/17 11/30/17 11/30/17 18:59 06:59 18:59 Intake Total 359 / 359 240 / 240 1612 / 1612 Output Total 700 / 700 500 / 500 Balance 359 / 359 -460 / -460 1112 / 1112 Weight 76.7 kg Intake: IV / 112 Cyklokapron Inj 1,200 MG In NS 112 / 112 Inj 100 ML @ 224 mls/hr IV.SIG ONCE ONE Rx#:[id number] Oral 240 / 240 Anesthesia Amount 1500 / 1500 Intake (Blood Product) Amt 359 / 359 0 / 0 Plasma Thawed 5 Day Acda Unit 0 / 0 [id number] Plasma Thawed 5 Day Cp2d Unit 359 / 359 [id number] Output: Urine 700 / 700 450 / 450 Estimated Blood Loss 50 / 50 Other: Date of Last Bowel Movement 11/27/17 11/27/17 Narrative: GENERAL: Pleasant elderly male, in nad CARDIOVASCULAR: Regular rate and rhythm. RESPIRATORY: No accessory muscle use. Clear to auscultation. Breath sounds equal bilaterally. GASTROINTESTINAL: Abdomen soft, non-tender, nondistended. Hepatic and splenic margins not palpable. MUSCULOSKELETAL: Left leg s/p surgery. Neurovascular intact. Extremities without clubbing, cyanosis, or edema. No obvious deformities. NEUROLOGICAL: Awake and alert. No obvious cranial nerve deficits. Motor grossly within normal limits. Five out of 5 muscle strength in the arms and legs. Normal speech. Results - Labs CBC & Chem 7: 11/30/17 08:35 11/30/17 08:35 Laboratory Results - last 24 hr 11/29/17 11/30/17 11/30/17 18:16 05:01 07:40 WBC RBC Hgb Hct MCV MCH MCHC RDW Plt Count MPV Neut % (Auto) Lymph % (Auto) [place] % (Auto) Eos % (Auto) Baso % (Auto) Neut # (Auto) Lymph # (Auto) [place] # (Auto) Eos # (Auto) Baso # (Auto) WBC Differential Differential Comment PT 12.0 H INR 1.2 APTT 26.4 Sodium Potassium Chloride Carbon Dioxide Anion Gap BUN Creatinine Estimated GFR Random Glucose Lactic Acid Calcium Urine Color Yellow Urine Clarity Clear Urine pH 7.0 Ur Specific [place] 1.011 Urine Protein Negative Urine Glucose (UA) Negative Urine Ketones Negative Urine Occult Blood Negative Urine Nitrate Negative Urine Bilirubin Negative Urine Urobilinogen Less than 2 Ur Leukocyte Esterase Negative Urine RBC 1 Urine WBC Less than 1 Ur Squamous Epith Cells <1 Urine Mucus Few H Micro UA Comment Culture not ind Ur Microscopic Review Not Reportable Urine Culture Comments Culture not ind Blood Bank Comment 11/30/17 11/30/17 11/30/17 08:35 08:35 08:35 WBC 7.6 RBC 3.75 L Hgb 12.4 L Hct 36.0 L MCV 96.1 MCH 33.1 MCHC 34.4 RDW 13.5 Plt Count 107 L MPV 9.0 Neut % (Auto) 63.4 Lymph % (Auto) 20.0 [place] % (Auto) 16.0 H Eos % (Auto) 0.3 Baso % (Auto) 0.3 Neut # (Auto) 4.8 Lymph # (Auto) 1.5 [place] # (Auto) 1.2 H Eos # (Auto) 0.0 Baso # (Auto) 0.0 WBC Differential . Differential Comment Auto diff final PT INR APTT Sodium 135 L Potassium 3.6 Chloride 102 Carbon Dioxide 25.1 Anion Gap 8 BUN 12 Creatinine 0.70 Estimated GFR Greater than 89 Random Glucose 103 Lactic Acid 0.9 Calcium 7.7 L Urine Color Urine Clarity Urine pH Ur Specific [place] Urine Protein Urine Glucose (UA) Urine Ketones Urine Occult Blood Urine Nitrate Urine Bilirubin Urine Urobilinogen Ur Leukocyte Esterase Urine RBC Urine WBC Ur Squamous Epith Cells Urine Mucus Micro UA Comment Ur Microscopic Review Urine Culture Comments Blood Bank Comment - Imaging Impressions Hip X-Ray 11/30/17 00:00 CONCLUSION: Postoperative left total hip replacement. Chest X-Ray 11/30/17 07:52 CONCLUSION: Mild atelectasis in the right lower lung. Assessment and Plan - Plan 87 yo male: S/p mechanical fall with left neck femoral fracture ortho consulted Pain meds per pain scale Labs on admission fairly normal EKG reviewed, CXR on admission reviewed Patient has a h/o Afib and HLD. Restart home meds as appropriate. Monitor on telemetry. Monitor VS In IVf as patient will be NPO prior to surgery. NPO after midnight INR is 1.9 on admission patient reports taking Coumadin today in the morning. Will repeat INR in the morning. Might need reversal with FFP/ vit K . INR 11/29 at 2.1. Reversal with fresh frozen plasma and vitamin K. S/p Left hip hemiarthroplasty 11/30/[address] Santoyo Patient with fevers and tachycardia meeting SIRS/ sepsis criteria, with poss PNA. No leukocytosis. UA reviewed. LA is normal. Blood cultures obtained. Repeat CXR reviewed with mild atelectasis, in the right lower lung, will start IV abx ceftriaxone and azithromycin DVT ppx SCDs/TEDs, chemical ppx per surgeon Note patient is on coumadin for Afib. INR on admission is 1.9. Hold coumadin. INR 11/29 at 2.1. INR on 11/30 < 1.6 and patient had surgery Discussed with the patient, ortho team, nurse.
[2017-11-30] MEDS: ceFAZolin 2 GM Premix Inj 2 GM/100 ML BAG IV.SIG SCH (17:00)
[2017-11-30] MEDS: Azithromycin Inj 500 MG in Sodium Chlor 0.9% Inj 250 ML IV.SIG SCH (17:45)
[2017-12-01] MEDS: ceFAZolin 2 GM Premix Inj 2 GM/100 ML BAG IV.SIG SCH ×2 (01:25→09:50)
[2017-12-01 06:42] LABS: Activated Partial Thrombo Time 26.8 sec (24.3-30.1); INR 1.2 Ratio; Prothrombin Time 11.7 sec (9.8-11.6)
[2017-12-01 06:46] LABS: Baso % (Auto) 0.2 % (0.0-2.0); Hematocrit 36.9 % (39.0-51.0); Hemoglobin 12.4 gm/dL (13.0-17.0); Lymph # (Auto) 1.3 th/mm3 (1.0-4.8); Mean Corpuscular HGB Conc 33.8 % (32.0-36.0); Mean Corpuscular Hemoglobin 32.9 pg (27.0-34.0); Mean Corpuscular Volume 97.5 fL (80.0-100.0); Mean Platelet Volume 9.8 fL (7.0-11.0); Mono # (Auto) 1.2 th/mm3 (0.0-0.9); Mono % (Auto) 12.5 % (0.0-8.0); Neut # (Auto) 7.3 th/mm3 (1.8-7.7); Neut % (Auto) 74.3 % (16.0-70.0); Platelet Count 102 th/mm3 (150-450); Red Blood Count 3.78 mil/mm3 (4.50-5.90); Red Cell Distribution Width 13.4 % (11.6-17.2); White Blood Count 9.8 th/mm3 (4.0-11.0)
[2017-12-01 06:47] LABS: Hemoglobin 12.5 gm/dL (13.0-17.0)
[2017-12-01 06:56] LABS: Anion Gap 10 meq/L (5-15); Blood Urea Nitrogen 12 mg/dL (7-18); Carbon Dioxide 25.9 meq/L (21.0-32.0); Chloride 101 meq/L (98-107); Glomerular Filtration Rate Greater Than 89 mL/min (>89); Glucose,Random 117 mg/dL (74-106); Sodium 137 meq/L (136-145)
--- NOTE | 2017-12-01 07:30 | P.PNOP ---
Subjective Interval history: POD 1 s/p left hip hemiarthroplasty doing well. pain controlled. out of bed to chair yesterday Physical Exam Vital signs: Vital Signs 11/30/17 08:00 11/30/17 08:51 11/30/17 10:01 Temperature 100 F H 98.4 F Pulse Rate 102 H 104 H Respiratory Rate 20 16 Blood Pressure 141/71 H 115/65 Pulse Oximetry 93 L 95 97 11/30/17 10:50 11/30/17 11:00 11/30/17 11:15 Temperature 97.3 F L Pulse Rate 91 H 90 87 Respiratory Rate 20 19 21 Blood Pressure 122/62 112/64 137/68 Pulse Oximetry 96 97 97 11/30/17 11:27 11/30/17 12:00 11/30/17 20:00 Temperature 97.8 F 97.7 F 97.3 F L Pulse Rate 88 88 82 Respiratory Rate 18 18 17 Blood Pressure 135/75 130/65 100/56 L Pulse Oximetry 95 93 L 93 L 11/30/17 23:22 12/01/17 03:50 Temperature 98.3 F 98.4 F Pulse Rate 89 92 H Respiratory Rate 17 17 Blood Pressure 127/67 134/82 Pulse Oximetry 93 L 93 L Intake & Output 11/30/17 12/01/17 12/01/17 18:59 06:59 18:59 Intake Total 1612 / 1612 680 / 680 Output Total 500 / 500 Balance 1112 / 1112 680 / 680 Weight 78.7 kg Intake: IV 112 / 112 200 / 200 Cyklokapron Inj 1,200 MG In NS 112 / 112 Inj 100 ML @ 224 mls/hr IV.SIG ONCE ONE Rx#:[id number] Ancef 2 GM Premix Inj 2 gm In 200 / 200 100 ml @ 200 mls/hr IV.SIG Q8H [facility] Rx#:[id number] Oral 480 / 480 Anesthesia Amount 1500 / 1500 Output: Urine 450 / 450 Estimated Blood Loss 50 / 50 Other: # Voids 2 Date of Last Bowel Movement 11/27/17 # Bowel Movements 0 Narrative: LLE: dressing clean and dry. intact. NVI distally - Urinary Catheter Management Straight Cath placed during this visit: yes, but has since been removed by the nurse Reason for continuing: Continue criteria not met Insertion date: 11/30/17 Insertion time: 23:30 Removal date: 11/30/17 Removal time: 23:40 Results - Labs CBC & Chem 7: 12/01/17 06:01 12/01/17 06:01 Laboratory Results - last 24 hr 11/30/17 11/30/17 11/30/17 07:40 08:35 08:35 WBC 7.6 RBC 3.75 L Hgb 12.4 L Hct 36.0 L MCV 96.1 MCH 33.1 MCHC 34.4 RDW 13.5 Plt Count 107 L MPV 9.0 Neut % (Auto) 63.4 Lymph % (Auto) 20.0 [place] % (Auto) 16.0 H Eos % (Auto) 0.3 Baso % (Auto) 0.3 Neut # (Auto) 4.8 Lymph # (Auto) 1.5 [place] # (Auto) 1.2 H Eos # (Auto) 0.0 Baso # (Auto) 0.0 WBC Differential . Differential Comment Auto diff final PT INR APTT Sodium 135 L Potassium 3.6 Chloride 102 Carbon Dioxide 25.1 Anion Gap 8 BUN 12 Creatinine 0.70 Estimated GFR Greater than 89 Random Glucose 103 Lactic Acid Calcium 7.7 L Urine Color Yellow Urine Clarity Clear Urine pH 7.0 Ur Specific [place] 1.011 Urine Protein Negative Urine Glucose (UA) Negative Urine Ketones Negative Urine Occult Blood Negative Urine Nitrate Negative Urine Bilirubin Negative Urine Urobilinogen Less than 2 Ur Leukocyte Esterase Negative Urine RBC 1 Urine WBC Less than 1 Ur Squamous Epith Cells <1 Urine Mucus Few H Micro UA Comment Culture not ind Ur Microscopic Review Not Reportable Urine Culture Comments Culture not ind 11/30/17 12/01/17 12/01/17 08:35 06:01 06:01 WBC 9.8 RBC 3.78 L Hgb 12.4 L Hct 36.9 L MCV 97.5 MCH 32.9 MCHC 33.8 RDW 13.4 Plt Count 102 L MPV 9.8 Neut % (Auto) 74.3 H Lymph % (Auto) 13.0 [place] % (Auto) 12.5 H Eos % (Auto) 0.0 Baso % (Auto) 0.2 Neut # (Auto) 7.3 Lymph # (Auto) 1.3 [place] # (Auto) 1.2 H Eos # (Auto) 0.0 Baso # (Auto) 0.0 WBC Differential . Differential Comment Auto diff final PT INR APTT Sodium 137 Potassium 4.0 Chloride 101 Carbon Dioxide 25.9 Anion Gap 10 BUN 12 Creatinine 0.66 Estimated GFR Greater than 89 Random Glucose 117 H Lactic Acid 0.9 Calcium 8.0 L Urine Color Urine Clarity Urine pH Ur Specific [place] Urine Protein Urine Glucose (UA) Urine Ketones Urine Occult Blood Urine Nitrate Urine Bilirubin Urine Urobilinogen Ur Leukocyte Esterase Urine RBC Urine WBC Ur Squamous Epith Cells Urine Mucus Micro UA Comment Ur Microscopic Review Urine Culture Comments 12/01/17 12/01/17 06:01 06:01 WBC RBC Hgb 12.5 L Hct 37.0 L MCV MCH MCHC RDW Plt Count MPV Neut % (Auto) Lymph % (Auto) [place] % (Auto) Eos % (Auto) Baso % (Auto) Neut # (Auto) Lymph # (Auto) [place] # (Auto) Eos # (Auto) Baso # (Auto) WBC Differential Differential Comment PT 11.7 H INR 1.2 APTT 26.8 Sodium Potassium Chloride Carbon Dioxide Anion Gap BUN Creatinine Estimated GFR Random Glucose Lactic Acid Calcium Urine Color Urine Clarity Urine pH Ur Specific [place] Urine Protein Urine Glucose (UA) Urine Ketones Urine Occult Blood Urine Nitrate Urine Bilirubin Urine Urobilinogen Ur Leukocyte Esterase Urine RBC Urine WBC Ur Squamous Epith Cells Urine Mucus Micro UA Comment Ur Microscopic Review Urine Culture Comments - Imaging Impressions Hip X-Ray 11/30/17 00:00 CONCLUSION: Postoperative left total hip replacement. Chest X-Ray 11/30/17 07:52 CONCLUSION: Mild atelectasis in the right lower lung. Assessment and Plan - Assessment and Plan 1) Left Femoral Neck Fx s/p hemiarthroplasty - POD 1 -WBAT -posterior hip precautions -begin bridging with lovenox and coumadin -knee brace while in bed -plan for DC to SNF -f/u with ortho in 2 weeks. patient from [facility]. [employer] Prescription Drug Monitoring Database has been queried and verified prior to prescribing the controlled substance. Acute pain exception. This patient has normal, predicted, physiological, and time limited response to an adverse mechanical stimulus associated with surgery, trauma, or acute illness as described in my notes. There is a lack of alternative treatment options other than to include the prescribed narcotic treatment for this condition.
[2017-12-01] MEDS: dilTIAZem CD 180 MG Capsule PO SCH (08:39)
[2017-12-01] MEDS: Senna/Docusate Sodium 8.6/50 MG Tablet PO SCH (08:39)
[2017-12-01] MEDS: Finasteride 5 MG Tablet PO SCH (08:39)
[2017-12-01] MEDS: Calcium/Vitamin D 250/125 MG Tablet PO SCH ×2 (08:39→12:52)
[2017-12-01 08:59] VITALS: RESP 18
[2017-12-01] MEDS ORDERED: Enoxaparin Inj 40 MG/0.4 ML Syringe SQ SCH ×2 (09:00→10:00)
[2017-12-01 12:03] VITALS: PULSE 98
--- NOTE | 2017-12-01 14:43 | P.DS ---
Date of admission: 11/28/17 16:23 Primary care physician: UNKNOWN Brief History from admission: Patient is a very pleasant 87-year-old male with history of atrial fibrillation on Coumadin, hyperlipidemia, BPH, accidentally fell earlier today, injured his left hip. Is unable to ambulate normally, has rotated and shortened left leg. Patient denies any other injury, no loss of consciousness, no head injury reported. He denies any chest pain. No shortness of breath. Patient says he took Coumadin outreach rep today. His INR is 1.9 today. Patient has left neck femoral fracture orthopedics was consulted. Is cleared medically for surgery. DS: Diagnosis - Discharge Diagnosis (1) Fracture of femoral neck, left, closed Status: Acute DS: Medications - Discharge Medications Prescriptions: Lactobacillus acidoph-L.bulgar [Lactinex] 1 tab PO DAILY #30 tab levofloxacin [Levaquin] 750 mg PO DAILY #5 tab sennosides-docusate sodium [Senna Plus] 1 tab PO BID #60 tab tramadol 50 mg PO Q6-8H PRN #7 tab PRN Reason: pain DS: Summary Hospital Course: Patient is a very pleasant 87-year-old male with history of atrial fibrillation on Coumadin, hyperlipidemia, BPH, accidentally fell and injured his left hip. S/p mechanical fall with left neck femoral fracture ortho consulted Pain meds per pain scale Labs on admission fairly normal EKG reviewed, CXR on admission reviewed Patient has a h/o Afib and HLD. Restart home meds. Monitored on telemetry. Monitor VS INR is 1.9 on admission. INR 11/29 at 2.1. Had Reversal with fresh frozen plasma and vitamin K. S/p Left hip hemiarthroplasty 11/30/[address] Santoyo 11/30/17 Patient with fevers ( 101 per nurse) and tachycardia meeting SIRS/ sepsis criteria, with poss PNA. No leukocytosis. UA reviewed. LA is normal. Blood cultures obtained NTD. Repeat CXR reviewed with mild atelectasis, in the right lower lung, started IV abx ceftriaxone and azithromycin, switch to levaquin. Encouraged IS use. Patient improved. No signs of sepsis, sepsis resolved. Patient also has a history of BPH restart home medications. However he was noted with urinary retention after surgery and Acosta is placed back in. To have voiding trials at rehab and patient to follow-up with urology as outpatient. Discharged to inpatient rehab to follow-up with PCP and consultants as outpatient. - Time Spent with Patient Total time spent providing and/or coordinating discharge services: Greater than 30 minutes Exam Vital signs: Vital Signs 11/30/17 20:00 11/30/17 23:22 11/30/17 23:45 Temperature 97.3 F L 98.3 F Pulse Rate 82 89 91 H Respiratory Rate 17 17 Blood Pressure 100/56 L 127/67 Pulse Oximetry 93 L 93 L 12/01/17 03:50 12/01/17 08:00 12/01/17 12:00 Temperature 98.4 F 98.1 F 97.7 F Pulse Rate 92 H 94 H 98 H Respiratory Rate 17 18 18 Blood Pressure 134/82 165/79 H 141/80 H Pulse Oximetry 93 L 91 L 90 L Intake & Output 11/30/17 12/01/17 12/01/17 18:59 06:59 18:59 Intake Total 1612 / 1612 680 / 680 240 / 240 Output Total 500 / 500 750 / 750 900 / 900 Balance 1112 / 1112 -70 / -70 -660 / -660 Weight 78.7 kg Intake: IV 112 / 112 200 / 200 Cyklokapron Inj 1,200 MG In NS 112 / 112 Inj 100 ML @ 224 mls/hr IV.SIG ONCE ONE Rx#:[id number] Ancef 2 GM Premix Inj 2 gm In 200 / 200 100 ml @ 200 mls/hr IV.SIG Q8H VIOLA Rx#:[id number] Oral 480 / 480 240 / 240 Anesthesia Amount 1500 / 1500 Output: Urine 450 / 450 Estimated Blood Loss 50 / 50 Urine Amount (Catheter) 750 / 750 900 / 900 Straight 750 / 750 900 / 900 Other: # Voids 2 Date of Last Bowel Movement 11/27/17 11/27/17 # Bowel Movements 0 Narrative: GENERAL: Pleasant elderly male, in nad CARDIOVASCULAR: Regular rate and rhythm. RESPIRATORY: No accessory muscle use. Clear to auscultation. Breath sounds equal bilaterally. GASTROINTESTINAL: Abdomen soft, non-tender, nondistended. Hepatic and splenic margins not palpable. MUSCULOSKELETAL: Left leg s/p surgery. Neurovascular intact. Extremities without clubbing, cyanosis, or edema. No obvious deformities. NEUROLOGICAL: Awake and alert. No obvious cranial nerve deficits. Motor grossly within normal limits. Five out of 5 muscle strength in the arms and legs. Normal speech. Results Procedures completed during hospitalization: left hip arthroplasty by Dr Santoyo on 11/30/17 Labs on day of discharge: Labs from last 24 hours 12/01/17 12/01/17 12/01/17 06:01 06:01 06:01 WBC RBC Hgb 12.5 L Hct 37.0 L MCV MCH MCHC RDW Plt Count MPV Neut % (Auto) Lymph % (Auto) [place] % (Auto) Eos % (Auto) Baso % (Auto) Neut # (Auto) Lymph # (Auto) [place] # (Auto) Eos # (Auto) Baso # (Auto) WBC Differential Differential Comment PT 11.7 H INR 1.2 APTT 26.8 Sodium 137 Potassium 4.0 Chloride 101 Carbon Dioxide 25.9 Anion Gap 10 BUN 12 Creatinine 0.66 Estimated GFR Greater than 89 Random Glucose 117 H Calcium 8.0 L Vit D 1,25-Dihydroxy 12/01/17 11/30/17 06:01 20:10 WBC 9.8 RBC 3.78 L Hgb 12.4 L Hct 36.9 L MCV 97.5 MCH 32.9 MCHC 33.8 RDW 13.4 Plt Count 102 L MPV 9.8 Neut % (Auto) 74.3 H Lymph % (Auto) 13.0 [place] % (Auto) 12.5 H Eos % (Auto) 0.0 Baso % (Auto) 0.2 Neut # (Auto) 7.3 Lymph # (Auto) 1.3 [place] # (Auto) 1.2 H Eos # (Auto) 0.0 Baso # (Auto) 0.0 WBC Differential . Differential Comment Auto diff final PT INR APTT Sodium Potassium Chloride Carbon Dioxide Anion Gap BUN Creatinine Estimated GFR Random Glucose Calcium Vit D 1,25-Dihydroxy Pending Preliminary micro results at discharge 11/30/17 08:35 Aerobic Blood Culture - Preliminary Blood - Peripheral No growth in 1 day Anaerobic Blood Culture - Preliminary No growth in 1 day 11/30/17 08:30 Aerobic Blood Culture - Preliminary Blood - Peripheral No growth in 1 day Anaerobic Blood Culture - Preliminary No growth in 1 day - Impressions ITS Impressions Hip X-Ray 11/30/17 00:00 CONCLUSION: Postoperative left total hip replacement. Chest X-Ray 11/30/17 07:52 CONCLUSION: Mild atelectasis in the right lower lung. Discharge Plan - Discharge Disposition Patient Disposition: 63 Rehab Inpatient - Discharge Condition Condition: Serious - Discharge Order Discharge Orders: Discharge Order (Routine); Ordered 12/01/17 Ordered By: Lisa Hollins - Discharge Details Discharge Comment: left hip fracture, admitted for surgical treatment - Physicians Team Primary Care Provider: UNKNOWN, Attending Provider: Lisa Hollins Other Providers: Wilner Santoyo MD ; Cornelius Holt MD
[2017-12-01] MEDS: Azithromycin Inj 500 MG in Sodium Chlor 0.9% Inj 250 ML IV.SIG SCH (16:21)
[2017-12-01 17:08] VITALS: O2SAT 93
[2017-12-01 17:42] VITALS: BP 72/52; TEMP 98
== END 2017-12-01 17:55 ==
LOC: NEPC 10:57 → NEDA 16:23 → N06 16:53
PROVIDERS: ADMIT Hospitalist; ATTEND Hospitalist